=== PATIENT | female | born 2000 | race Caucasian/White ===

== ENCOUNTER → 2024-06-25 10:30 | Outpatient (BNV) | payer OTHER, SELFPAY | PROVIDERS: Visit Provider Psychiatry & Neurology Psychiatry | DX: F42.9 Obsessive-compulsive disorder, unspecified (principal); F43.10 Post-traumatic stress disorder, unspecified | CPT/HCPCS: 90792; 99214 ==

== ENCOUNTER 2024-07-08 08:23 | Outpatient (REF) | payer OTHER, SELFPAY ==
--- OUTSIDE RECORDS SUMMARY | 2024-07-08 08:35 | XMS_ITS | Encounter Summary ---
Author Organization [facility] Address [address] [place] [address] Phone Care Team Providers Care Screw Machine Tool Setter Name Role Phone Judith Weller NP Primary Care Provider [phone] Encounter Details Date Type Department Care Team (Late st Contact Info) Description 01/08/2017 Conversion Encounter [facility] - [address], [address] [place] [address] Judith Weller NP [address] [place] [address] Social History Tobacco Use Types Packs/Day Years Used Date Smoking Tobacco: Never Assessed Comments Unknown Sex and Gender Information Value Date Recorded Sex Assigned at Female 05/13/2024 6:36 AM EST Legal Sex Female 5:10 PM EST Gender Identity Female 02/01/2020 2:02 PM EDT Sexual Orientation Bisexual 11/15/2020 9: 10 AM EDT documented as of this encounter Plan of Treatment Not on file documented as of this encounter Visit Diagnoses Not on filedocumented in this encounter Care Teams Screw Machine Tool Setter Relationship Specialty Start Date End Date Judith Weller NP [address] [place] [address] PCP - General 07/23/16 documented as of this encounter
--- OUTSIDE RECORDS SUMMARY | 2024-07-08 08:35 | XMS_ITS | Clinical Summary ---
Author Organization [facility] Address [address] [place] [address] Phone Care Team Providers Care Director Of Community Life Name Role Phone Judith Weller CAROL Primary Care Provider [phone] Allergies Active Allergy Reactions Criticality Noted Date Comments Latex adhesives allergy Nickel Postive Skin test/Po sitive RAST Medications sertraline 100 MG tablet Take 200 mg by mouth once daily. In the evening 3 9 Active Oral Electrolytes (Liquid I.V.) packIndications:O rthostatic hypotension 2 packs po QD 100 each 1 3 Active QUEtiapine 100 MG tablet Take 25 mg by mouth daily as needed. Active Magnesium 400 MG capsuleIndication s:Episodic tension-type headache, not intractable 1 po QD 90 capsule 1 4 Active PROPRANOLOL HCL PO Take 25 mg by mouth as needed. Active fluticasone 50 MCG/ACT nasal sprayIndications: Other fatigue Administer 1 spray into each nostril daily. 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 Will see in office for follow up to discuss lab eval and possibly starting OCP. Adolescent idiopathic scoliosis of thoracolumbar region 03/26/2016 Overview (02/11/2019): 03/26/2016 22 degrees T6-T12, 25 degrees L1-R3-esywzjqd to [facility]. 05/17-xray at [facility] 27 degree thoracolumbar and 20 degree thoracic. 07/2017-stable scoliosis, wearing natalee brace, Risser 2-3-still growing 01/17-Risser 3-4-curve has progressed 30 degrees/28 degrees-followed at [facility] 07/29/18-Brace D/C'd by [facility] 01/2019-[facility] wants to see annually now Assessment & Plan (02/01/2020 4:43 PM EDT): Stable out of brace, monitored with annual XR from [facility] Bipolar 1 disorder 03/12/2016 Overview (02/25/2017): 03/12/2016 stable on [place], follwed at [facility] Assessment & Plan (02/01/2020 4:44 PM EDT): Followed by psychiatry, medications working well. Nonintractable headache 03/12/2016 Overview (02/25/2017): 03/12/2016 [facility] for 2 years, neg neuro w/u with Dr. Piedad Ca 09/2014. Bifrontal, w/o vomiting, w/o change in vision. FH migraines in mom. Will have diet trial. Increase hydration.03/17-rare now-much improved Assessment & Plan (02/01/2020 4:42 PM EDT): No significant issues, some related to stress but brief and not interfering with daily activities. 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 Will go to [employer] next year.01/23/[address] Assessment & Plan (02/01/2020 4:44 PM EDT): 504 plan at school, struggling with remote learning but more due to issues with procrastination. Resolved Problems Problem Noted Date Diagnosed Date Resolved Date Need for case management follow-up 02/01/2020 10/06/2022 Overview (02/01/2020): Ht, wt, hearing, vision, BP, lipids/labs for menstrual issues, MCV, Hep A, flu, CT Bilateral hip pain 12/04/2019 Assessment & Plan (12/06/2019 5:56 PM EDT): Very reassuring exam. I suspect this is muscular will refer to PT and do screening labs for lyme. I would consider xrays but not indicated yet especially since it is bilateral. Assessment & Plan (12/04/2019 3:27 PM EDT): Acute onset 4 days ago with sharp pain on R when walking. Now bilateral and more of an ache. No other joints involved, no fever or other systemic symptoms. Has a history of scoliosis, but no ongoing back pain. Will try supportive care and encouraged follow up for labs/further evaluation if not improving in a week or sooner if worsening. Concussion without loss of consciousness 06/12/2019 10/05/2019 Assessment & Plan (06/12/2019 10:47 AM EST): Concussion protocol. Recheck 4-5 d Injury of toe on left foot 11/27/2017 1 06/19/2017 Overview (11/27/2017): L 4th and 5th toes. Fx possible but not likely. Rest, ice, elevation, recheck 24 hrs prn for possible boot. Gastroesophageal reflux dise ase without esophagitis 03/25/2017 02/01/2020 Overview (03/25/2017): Possible explanation for symptoms although symptoms very vague. Suggest symptom diary to become more accurate Vegetarian 03/12/2016 09/24/2018 Immunizations Immunization Administration Dates Next Due DTaP 12/23/2006, 4,04/27/2003,02/28,2002 HPV Vaccine 9 Valent 08/23/2017,03/12/2016 Hep A, ped/adol 11/15/2020 Hep B, ped/adol 04/04/2014,01/19/2014,05/02/2009 Hib (PRP-T) 05/08/2004, 3,02/28/2003,12/28 IPV 12/23/2006, 4,06/08/2003,01/20 Influenza 02/15/2009 Influenza, injectable, quadr ivalent, preservative free 10/08/2023,07/15/2022,04/06/2019,08/05,08/23/2017,03/12/2016 Influenza, intranasal, quadrivalent 04/04/2014 MMR 01/31/2009 MMRV 12/23/2006 Meningococcal Conj (Menactra) MCV4P 11/15/2020,1 Pneumococcal Conjugate 05/08/2004,06/08/2003, Tdap 01/23/2015 Varicella 01/23/2015 Family History Relation Name Status Comments Cousin 1 Alive Maternal Cousin s: Autism Cousin 2 Alive Paternal Cousin s: Healthy Father Alive Father's Brother Alive Father's Sister Alive Paternal Aun t: Healthy Maternal Grandfather Alive Mat GFa ther: hypertension Maternal Grandmother Mat GMo ther: Breast cancer at the age 50 Mother Alive Mother: vertigo / migraines Other 1 Breast cancer Other 2 None Other 3 Alive Other 4 Alive Other 5 Alive Other 6 Alive Autism Other 7 Alive Healthy Other 8 Alive Healthy Other 9 Alive Healthy Other 10 Alive Healthy Other 11 Alive High functionin g spectrum Other 12 Alive hypertension Other 13 Alive vertigo/ migrai felisha Other 14 Breast cancer a t the age 50 Paternal Grandfather Alive Pat GFa ther: Healthy Paternal Grandmother Alive Social History Tobacco Use Types Packs/Day Years Used Date Smoking Tobacco: Never Smokeless Tobacco: Never Comments:No vaping Alcohol Use Standard Drinks/Week Comments No 0 (1 standard drink = 0.6 oz pure alcohol) Feels she can call parents if at a green party and uncomfortable. Hunger/Food Answer Date Recorded In the last 12 months, did y ou or your family ever eat less than you felt you should because there wasn't enough money for food? No 10/08/2023 Stable Housing Answer Date Recorded Are you worried that in the next 2 months you may not have stable housing? No 10/08/2023 Transportation Concerns Answer Date Rec orded In the last 12 months, have you or your family ever had to go without healthcare because you didn't have a way to get there? No 10/08/2023 Hazards in Home Answer Date Recorded Think about the place you li ve. Do you have problems with any of the following? Pests (mice or roaches), mold, no/not working smoke detectors, water leaks, no window guards. No 2023 Financing Utilities Answer Date Recorde d In the last 12 months, has t he electric, gas, oil, or water company threatened to shut off your services in your home? No 10/08/2023 Safety at Home Answer Date Recorded Are you or your family worried about feeling saf e in your home? No 10/08/2023 Outside Support Answer Date Recorded Do you feel that you need mo re support from other people or programs to help you care for yourself or your family? No 10/08/2023 Understanding Health Concerns Answer Da te Recorded Do you need help understandi ng your or your child's healthcare needs (diagnosis, medications, plan, etc.)? No 10/08/2023 Financing Health Concerns Answer Date R ecorded In the last 12 months, was t here a time when your child needed to see a doctor or get medications or supplies but could not because of cost? No 10/08/2023 Missing School or Work Answer Date Hardeep rded Did you or your child miss s chool or work because of a health problem that could have been avoided? No 10/08/2023 Child Education Answer Date Recorded Do you have concerns about y our/your child's learning or behavior in school, preschool, or daycare? No 10/08/2023 Comments No Sex and Gender Information Value Date Recorded Sex Assigned at Female 05/13/2024 6:36 AM EST Legal Sex Female 5:10 PM EST Gender Identity Female 02/01/2020 2:02 PM EDT Sexual Orientation Bisexual 11/15/2020 9: 10 AM EDT Last Filed Vital Signs Vital Sign Reading Time Taken Comments Blood Pressure 108/72 10/08/2023 2:51 PM EDT Pulse 80 10/08/2023 2:51 PM EDT Temperature 36.3 ??C (97.3 ??F) 08/02/2022 8:19 AM ES T Respiratory Rate 18 08/07/2019 3:20 PM EST Oxygen Saturation 99% 08/02/2022 8:19 AM EST Inhaled Oxygen Concentration - - Weight 71 kg (156 lb 9.6 oz) 10/08/2023 2:51 PM EDT Height 163.8 cm (5' 4.5 ) 10/08/2023 2:51 PM EDT Body Mass Index 26.47 10/08/2023 2:51 PM EDT Plan of Treatment Health Maintenance Due Date Last Done Comments Men B Vaccine (1 of 2 - Standard) 2018 Hepatitis A Vaccines (2 of 2 - 2-dose series) 05/17/2021 11/15/2020 Glucose/HbA1C 10/08/2023 11/27/2015, 02/01, 02/22/2015, Additional history exists LDL-C/Cholesterol 10/08/2023 11/15/2020, , 02/22/2015, Additional history exists Influenza Vaccines (#1) 2024 10/08/19, 07/15/2022, 02/11/2022, Additional history exists Chlamydia and Gonorrhea Screening 06/02/2024 021, 09/24/2018 DTaP,Tdap,and Td Vaccines (7 - Td or Tdap) 01/23/2025 01/23/2015, 12/23/2006, 05/08/2004, Additional history exists HIB Vaccines Completed 05/08/2004, 04/03, 02/28/2003, Additional history exists Pneumococcal Vaccine Completed 05/08/2004, 06/08/2003, 01/20/2003 IPV Vaccines Completed 12/23/2006, 09/30, 06/08/2003, Additional history exists MMR Vaccines Completed 01/31/2009, 12/23/2006 Hepatitis B Vaccines Completed 04/04/2014, 01/19/2014, 05/02/2009 Varicella Vaccines Completed 01/23/2015, 12/23/2006 HPV Vaccines Completed 08/23/2017, 03/12/2016 Meningococcal Vaccine Completed 11/15/2020, 016 COVID-19 Vaccine Completed 02/01/2024, , 09/23/2020 Procedures * Due to [employer] law, this organization might not be sharing sensitive test results. Procedure Name Priority Date/Time Associated Diagnosis Comments CHLAMYDIA AND GONORRHEA, AMPLIFIED Routine 11/15/2020 9:45 AM EDT Well adult exam LIPID PANEL Routine 11/15/2020 9:33 AM EDT Lipid screening COMPREHENSIVE METABOLIC PANEL Routine 11/27/2015 12:00 AM EDT from Last 3 Months or Most Recently Relevant to Health Maintenance Results * Due to [employer] law, this organization might not be sharing sensitive test results. * Chlamydia and Gonorrhoea, Amplified (11/15/2020 9:45 AM EDT) Chlamydia trachomatis RNA, TMA Not Detected Not Detected 11/16/2020 10:14 AM EDT [facility] Neisseria gonorrhoeae, IGNACIA Not Detected Not Detected 11/16/2020 10:14 AM EDT [facility] Specimen Type urine 11/16/2020 10:14 AM EDT [facility] Urine 11/15/2020 9:45 AM EDT 11/15/2020 3:05 PM EDT us Judith Weller SUBSTANCE ABUSE SPECIALIST LAB MICROBIOLOGY - GENERAL ORD ERABLES Final Result [facility] * (ABNORMAL) Lipid panel (11/15/2020 9:33 AM EDT) HDL 48 mg/dL 11/15/2020 2:48 PM EDT [facility] Comment: ? Interpretation <40 mg/dL: Low HDL cholesterol (major risk factor for CHD) Greater than or equal to 60 mg/dL: High HDL cholesterol ( negative risk factor for CHD) HDL - cholesterol is affected by a number of factors, e.g. smoking, excerise, hormones, sex and age. Cholesterol 213 0 - 240 mg/dL 11/15/2020 2:48 PM EDT [facility] Comment: Pediatric Reference Ranges for 2 to 18 years ? Acceptable: ??Less than 170 mg/dL Borderline: 170 - 199 mg/dL High: ??Greater than or equal to 200 mg/dL Triglycerides 249(H) 30 - 160 mg/dL 11/15/2020 2:48 PM EDT [facility] LDL 115 50 - 129 mg/dL 11/15/2020 2:48 PM EDT [facility] Comment: LDL levels in terms of risk for coronary heart disease: <100 mg/dL: Optimal 100-129 mg/dL: Near or above optimal 130-159 mg/dL: Borderline high 160-189 mg/dL: High >190 mg/dL: Very High Cardiac Risk 4.4 3.3 - 4.4 11/15/2020 2:48 PM EDT [facility] Blood 11/15/2020 9:33 AM EDT 11/15/2020 9:39 AM EDT Narrative [facility] - 11/15/2020 2:48 PM EDT HAS THE PATIENT BEEN FASTING FOR 8 HOURS OR MORE? >NO Melissa Malcolm MD LAB BLOOD ORDERABLES Final R esult [facility] * Comprehensive Metabolic Panel (11/27/2015 12:00 AM EDT) [facility] >60 CONVERTED LAB[facility] Comment: Jono Nash 11/27/2015 12:56:04 PM > Normal Reason: Received -[facility] Lab Order Fretted String Instrument Repairer A/G RATIO 1.6 1.0 - 4.8 CONVERTED LABS Comment: Jono Nash 11/27/2015 12:56:04 PM > Normal Reason: Received [facility] Lab Order Fretted String Instrument Repairer GLUCOSE, SERUM 90 CONVERTED LABS Comment: Joon Nash 11/27/2015 12:56:04 PM > Normal Reason: Received -[facility] Lab Order Fretted String Instrument Repairer CALCIUM 10.1 8.4 - 10.3 CONVERTED LABS Comment: Jono Nash 11/27/2015 12:56:04 PM > Normal Reason: Received -[facility] Lab Order Fretted String Instrument Repairer ALKALINE PHOSPHATASE, SERUM 177 CONVERTED LABS Comment: Jono Nash 11/27/2015 12:56:04 PM > Normal Reason: Received -[facility] Lab Order Fretted String Instrument Repairer CHLORIDE, SERUM 106 CONVERTED LABS Comment: Jono Nash 11/27/2015 12:56:04 PM > Normal Reason: Received -[facility] Lab Order Fretted String Instrument Repairer SODIUM, SERUM 142 CONVERTED LABS Comment: Jono Nash 11/27/2015 12:56:04 PM > Normal Reason: Received -[facility] Lab Order Fretted String Instrument Repairer BUN, SERUM 11 CONVERTED LABS Comment: Jono Nash 11/27/2015 12:56:04 PM > Normal Reason: Received -[facility] Lab Order Fretted String Instrument Repairer PROTEIN, TOTAL, SERUM 6.7 CONVERTED LABS Comment: Jono Nash 11/27/2015 12:56:04 PM > Normal Reason: Received -[facility] Lab Order Fretted String Instrument Repairer CREATININE, SERUM <0.5 CONVERTED LABS Comment: Jono Nash 11/27/2015 12:56:04 PM > Normal Reason: Received -[facility] Lab Order Fretted String Instrument Repairer AST, (SGOT) 16 CONVERTED LABS Comment: Jono Nash 11/27/2015 12:56:04 PM > Normal Reason: Received -[facility] Lab Order Fretted String Instrument Repairer BILIRUBIN, TOTAL 0.4 CONVERTED LABS Comment: Jono Nash 11/27/2015 12:56:04 PM > Normal Reason: Received -[facility] Lab Order Fretted String Instrument Repairer CARBON DIOXIDE, TOTAL 24 CONVERTED LABS Comment: Jono Nash 11/27/2015 12:56:04 PM > Normal Reason: Received -[facility] Lab Order Fretted String Instrument Repairer POTASSIUM, SERUM 4.6 CONVERTED LABS Comment: Jono Nash 11/27/2015 12:56:04 PM > Normal Reason: Received -[facility] Lab Order Fretted String Instrument Repairer GLOBULIN, TOTAL 2.6 CONVERTED LABS Comment: Jono Nash 11/27/2015 12:56:04 PM > Normal Reason: Received -[facility] Lab Order Fretted String Instrument Repairer ALBUMIN, SERUM 4.1 CONVERTED LABS Comment: Jono Nash 11/27/2015 12:56:04 PM > Normal Reason: Received -[facility] Lab Order Fretted String Instrument Repairer ALT, (SGPT) 18 CONVERTED LABS Comment: Jono Nash 11/27/2015 12:56:04 PM > Normal Reason: Received -[facility] Lab Order Fretted String Instrument Repairer 11/27/2015 Narrative [facility] - 11/27/2015 12:00 AM EDT CMP Comp. Metabolic Panel (14) us Jono Nash MD LAB BLOOD ORDERABLES Final Resul t CONVERTED LABS from Last 3 Months or Most Recently Relevant to Health Maintenance Insurance [employer] [facility] [facility] Address: [facility] [id number] [place] [phone] Care Teams Director Of Community Life Relationship Specialty Start Date End Date Judith Weller NP [address] [place] [address] PCP - General 07/23/16
[2024-07-08 09:00] LABS: MANUAL DIFF FLAG NO
[2024-07-08 09:04] LABS: Basophils Percent Auto 0.9 % (0-2); Eosinophils Absolute Auto 0.1 X10*3/uL (0.0-0.4); Eosinophils Percent Auto 1.5 % (0-4); Hematocrit 41.8 % (37.0-47.0); Hemoglobin 13.4 g/dl (12.0-16.0); Imm Gran Abs Auto 0.01 X10*3/uL (0.00-0.03); Imm Gran Pct Auto 0.2 % (0.0-0.4); Lymphocytes Percent Auto 43.1 % (20-40); Mean Corpuscular HGB Conc 32.1 g/dl (31.0-35.0); Mean Corpuscular Hemoglobin 26.6 pg (27.0-33.0); Mean Corpuscular Volume 82.9 fL (80.0-98.0); Mean Platelet Volume 9.4 fL (9.4-12.3); Monocytes Absolute Auto 0.3 X10*3/uL (0.1-1.2); Monocytes Percent Auto 6.1 % (2-11); Neutrophils Absolute Auto 2.2 x10*3/uL (2.0-8.3); Neutrophils Percent Auto 48.2 % (45-73); Platelet Count 266 X10*3/uL (160-400); Red Blood Count 5.04 X10*6/uL (4.20-5.50); Red Cell Distribution Width 13.2 % (11.0-16.0); White Blood Count 4.6 X10*3/uL (4.8-10.8)
[2024-07-08 09:25] LABS: Appearance Urine Cloudy; Color Urine Dark Yellow; Glucose Urine UA Negative (Negative); Leukocyte Esterase Urine Trace (Negative); Nitrite Urine Negative (Negative); PH 5.5 (5.0-9.0); Specific Gravity - Urine >= 1.030 (1.005-1.025); UMIC TRIGGER UA YES; Urine Blood Negative (Negative); Urine Ketones Trace mg/dL (Negative); Urine Protein Trace mg/dL (Neg-Trace)
[2024-07-08 09:28] LABS: UPreg QC Valid YES; Urine Pregnancy NEGATIVE (NEGATIVE)
[2024-07-08 09:35] LABS: Alanine Aminotransferase 23 U/L (0-31); Albumin Level 4.3 g/dL (3.5-5.0); Alkaline Phosphatase 45 U/L (39-117); Anion Gap 13 (12-20); Aspartate Amino Transferase 18 U/L (5-31); Bilirubin Total 0.9 mg/dL (0.0-1.0); Blood Urea Nitrogen 13 mg/dL (9-16); C Reactive Protein < 0.04 mg/dL (< or = 0.50); Calcium 9.8 mg/dL (8.4-10.2); Carbon Dioxide 24 mmol/L (22-29); Chloride 107 mmol/L (96-108); Cholesterol 178 mg/dL (<200); Estimated Glomerular Filt Rate > 60; Glucose Fasting 91 mg/dL (60-99); HDL Cholesterol 44 mg/dL (>40); Iron 217 mcg/dL (30-160); LDL Cholesterol Calculated 103 mg/dL (<100); Magnesium 2.2 mg/dL (1.6-2.6); Percent Iron Saturation 65 % (15-50); Sodium 140 mmol/L (135-145); Total Iron Binding Capacity 335 mcg/dL (228-428); Triglycerides 156 mg/dL (<150); Unsaturated Iron Binding 118 ug/dL
[2024-07-08 09:38] LABS: Bacteria Urine 4+ (None Seen); Hyaline Casts Urine 0-2 /LPF (0-2)
[2024-07-08 09:46] LABS: Erythrocyte Sedimentation Rate 5 MM/HR (0-20)
[2024-07-08 09:46] LABS: Free T4 (Free Thyroxine) 1.08 ng/dL (0.71-1.85); Thyroid Stimulating Hormone 0.58 uIU/mL (0.32-4.0); Vitamin D 25-OH Total 12.7 ng/mL (>30)
[2024-07-08 09:58] LABS: Folate 13.7 ng/mL (> or = 4.0); Vitamin B12 424 pg/mL (200-900)
[2024-07-08 11:22] LABS: Estimated Average Glucose 108 mg/dL; Hemoglobin A1C 124.7697 umol/L; Hemoglobin A1c % 5.4 % (<6.0); Total Hemoglobin (HGBA1C) 3547.0654 umol/L
[2024-07-09 18:13] LABS: Homocysteine 8.1 umol/L (<10.4)
[2024-07-13 15:58] LABS: Methylmalonic Acid 133 nmol/L (55-335)
[2024-07-15 06:28] LABS: Vitamin B1 10 nmol/L (8-30)
== END 2024-07-08 08:24 | disposition home or self-care (01) ==
LOC: HO.LAB 08:23
PROVIDERS: Visit Provider Psychiatry & Neurology Psychiatry
DX: F39 Unspecified mood [affective] disorder (principal)
CPT/HCPCS: 36415; 80053; 80061; 81001; 81025; 82306; 82607; 82746; 83036; 83090; 83540; 83735; 83921; 84425; 84439; 84443; 85025; 85652; 86140

== ENCOUNTER 2024-07-22 10:00 | Outpatient (RCR) | payer OTHER, SELFPAY ==
[2024-06-25 11:13] VITALS: BMI 27.3
[2024-06-25 11:14] VITALS: BP 97/63; PULSE 75; TEMP 37.2
--- NOTE | 2024-06-25 14:43 | PC.ADMIT ---
Patient is a 23 year old single female who was referred to [facility] by her psychiatric prescriber secondary to increased anxiety, depression, and OCD symptoms. Patient is currently unemployed and she feels her mental health is contributing to her inability to work secondary to increased anxiety with panic attacks. Patient feels she is stuck in her life. She is constantly evaluating herself and whether or not she is a good person or if she has done something wrong and obsesses about this. Patient is alert and oriented x4. She is calm and cooperative. She presented with depressed mood and affect. She reports passive SI, denied any plan of intent to kill herself. She was given a copy of her safety plan if needed. She reports struggling with anxiety and depression and was dx with Borderline Personality Disorder at another program she went to and also has a history of attending DBT groups. Patient reports she also experiences panic attacks. Patient reported the following symptoms, SOB, feel like I cant breath, and feels like I'm dying. She reports her last panic attack was this morning. Medications reconciled with patient and patient's pharmacy. She reports taking medications as prescribed. Medication education provided.
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
--- NOTE | 2024-07-01 14:35 | HO.PHP ---
Client's case has been opened and reviewed in team.
--- NOTE | 2024-07-07 10:04 | PC.NURSE ---
Patient has a new PCP Appointment at [facility] on [address]. [facility] [address]. On July at 10:00 am. Bring insurance card and ID. Office # [phone].
--- NOTE | 2024-07-07 19:58 | P.PNPSP_ITS ---
Subjective Subjective Date of Service: 07/06/24 Reason For Visit: OCD,BPD Interim History: In interim, describes acute exacerbation in OCD symptoms w scrupulosity, in context of some interpersonal situations, triggering internal conflicts which she feels are impossible to reckon, but continues to obsessively ruminate over, leading to mounting distress, angst, hyperfixation, and has started back with compulsions to write up lists ad nauseum. I was doing well, I really thought I the meds were working and I was doing better and now I'm stuck again Patient was initially tearful and overwhelmed but with support she was able to more calmly explain that she had been getting out more with friends and meeting new friends. One new friend she found seemed to have values that align with her own, in this case regarding their stance on a current geopolitical conflict. The friend however was not boycotting specific businesses that patient thought she should if she felt strong enough about the cause. The distress comes when she feels conflicted about remaining this person's friend, not so much that she is upset with the friend for this decision, but moreso that she is obsessively worried that she is morally wrong by involving herself in a friendship where there is moral ambiguity, and by proxy she takes on the guilt of that choice by making the choice of being their friend. I don't know what this means, if my friends believe genocide is wrong, but then they don't stand up against it, and yet I want to stay friends, I get stuck in this thinking that I am doing something wrong too because it's like I am condoning evil . On the other hand, she recognizes that 'no one is perfect and that's okay' and 'judging others is also wrong' so she is also conflicted about being unkind to others, particularly friends. She has been again resorting to compulsory list-making weighing out the morally bad vs good things she has done over the course of the day. Much of her present distress stemming from the internal conflict regarding this situation. She struggles to reconcile the ambiguity of life (external, inerpersonal, internal) with the very black and white construct through which she views herself and the world. Difficulty adapting to her environments especially when novel situations (such as meeting a new person or watching a new movie or engaging in an unfamiliar activity) where she feels an immense pressure to estimate and determine whether this (person/activity) is in accordance or aligns sufficiently with her moral standard. Navigating social interactions is particularly challenging especially as other's thoughts/opinions/behaviors are influenced by an ever-changing world. She spoke at length about her efforts to become an excellent reader of social cues by watching her peers in school and trying to imitate them. It was much easier as a kid, life is much less complicated yet she relays that it still took her a while to make friends, as she often misinterpreted social cues, facial expressions, and this got her into trouble throughout elementary. She r ecalls not knowing how to react to other school children, as she got older she felt the desire to interact with peers I was pretty social, like I wanted to be around other kids and have friends, but wasn't sure what to say or do . She says that usually whatever she ended up saying or doing it would end up usually offending the other kids or leave them perplexed or annoyed. I learned to try to mimic other kids, thinking this would help me be accepted but often this just led to them still getting offended . Medication Compliance: Yes Side effects from medications: No Attending Groups: Yes Review of Systems Acute medical concerns: No Review of Systems Review of Systems Yes all other systems are reviewed and are negative Mental Status Exam Mental Status Exam Narrative: Initially tearful and inhibited, distraught but engaged. With support was able to regain composure. Otherwise pleasant. Casually dressed and presented. Good hygiene. Organized and articulate. Mood dysthymic. Affect tearful initially otherwise constricted obsessive thoughts, compulsions. Passive thoughts of . No active SI. No HI. No agitation or psychosis. Insight and judgment good Diagnostics Vital Signs (24Hr): BMI result Body Mass Index 27.3 Assessment & Plan Assessment & Plan (1) Obsessive compulsive disorder (or obsessive compulsive neurosis): Status: Acute Code(s): F42.9 - Obsessive-compulsive disorder, unspecified (2) Complex posttraumatic stress disorder: Status: Acute Code(s): F43.10 - Post-traumatic stress disorder, unspecified (3) Dyslexia: Status: Acute Code(s): R48.0 - Dyslexia and alexia Assessment and Plan: diagnosed in childhood (4) Pervasive developmental disorder: Status: Acute Code(s): F84.9 - Pervasive developmental disorder, unspecified Plan continue guanfacine ER 1 mg qam increase Abilify to 5-7 mg qd in early evening (may increase by 1/2 tablet/1mg q 1-2 days as tolerated - not to exceed 5 mg/d until seen next week by provider) for now continue Risperdal 2 mg qhs (if ABilify proves to be more effective for OCD/mood stability (than risperidone), will plan to start reducing dose of risperidone) continue fluvoxamine ER 150 mg qd (may consider titrating Luvox once Abilify vs Risperdal dosing is sorted) continue benztropine 0.5 mg qhs continue Risperdal 0.25 mg PRN for agitation (not utilizing) continue N-acetylcysteine 600 mg qd as supportive treatment for OCD ? Routine lab work ordered - lips slip given EKG, routine for baseline QTc for medication considerations as indicated UDS as indicated Continue to monitor Patient educated on: diagnosis and medication risk/benefits Informed Consent: understands Reason for contiued partial hosp. stay Substantial Risk for: inability to function, rapid decompensation and med/psych decompensation Certification I certify that partial hospital treatment is medically necessary due to the symptoms and problems resulting from the patient's mental illness and the failure to treat the patient at the partial hospital level of care would likely result in the patient requiring inpatient psychiatric care which could not be prevented at a less intensive level of care. Total time managing care of this patient today __30__ minutes. Discharge Plan Discharge Attending provider: Vidhya Laughlin Additional Instructions: New PCP Appointment at [facility] on [address] [facility] [address]. On July at 10:00 am. Bring insurance card and ID. Office # [phone]. Medications: New guanfacine 1 mg tablet extended release 24 hr 1 mg PO DAILY Qty: 20 0RF risperidone 0.25 mg tablet 0.25 mg PO BID Qty: 20 0RF Rx Instructions: as needed for intrusive thoughts/agitation acetylcysteine [NAC] 600 mg capsule 600 mg PO DAILY Qty: 30 0RF aripiprazole 2 mg tablet 2 mg PO DAILY Qty: 30 0RF aripiprazole 5 mg tablet 5 mg PO BEDTIME Qty: 30 0RF Continued benztropine 0.5 mg tablet 0.5 mg PO BEDTIME Rx Instructions: Last filled 04/2024. 90 day supply. risperidone 2 mg tablet 2 mg PO BEDTIME Rx Instructions: Last filled 06/02/24. #30 fluvoxamine 150 mg capsule,extended release 24hr 150 mg PO DAILY Patient Comments: Last filled 06/02/24. #30 Discontinued propranolol 20 mg tablet 20 mg PO BID PRN (Reason: Anxiety) Patient Comments: Rarely takes. Rx Instructions: Last filled 06/05/23. #180 No Action clonazepam 1 mg tablet 1 mg PO BID PRN (Reason: Anxiety) Patient Comments: Last use 3 weeks ago. Rx Instructions: Last filled 02/20/24 #28 Patient reports takes PRN Stand Alone Forms: Patient Portal Discharge page Print Language: Dominican
--- NOTE | 2024-07-16 23:58 | HO.PHPPROGNO ---
Subjective Subjective Date of Service: 07/16/24 Reason For Visit: OCD,BPD Interim History: Patient seen for follow-up. Am I just in a positive swing, or is this the meds and I'm doing better? Reports feeling less obsessive, more calm, less compulsive. I've been able to come out of the house more see friends . She says it's been easier/less triggering to be with her friends, and have expressed noticing a difference too. Taking guanfacine er 1 mg at noon, I think I feel a little less anxious . Has been at Abilify 7 mg, she feels ABilify has been more effective compared to Risperdal and would like to increase further. Reports Risperdal at 2 mg improved OCD severity from a 10/10 to an 8/10 at best. Since on Abilify it seems severity has diminished more markedly. Mood is improved, more regulated, anxiety improved. Denies any adverse effects from medications. Still struggles with ADHD chronically and is open to trying a stimulant. Had found Adderall helpful as a teen, attention, focus and emotions were better regulated, but had caused issues with excoriation. Sleep, appetite, energy stable. Denies any hopelessness or SI. No issues with anger and is notably less irritable. Denies HI, AVH. Medication Compliance: Yes Side effects from medications: No Review of Systems Acute medical concerns: No Review of Systems Review of Systems Yes all other systems are reviewed and are negative Mental Status Exam Mental Status Exam Narrative: Alert and oriented. Pleasant. Casually dressed and presented. Good hygiene. Organized and articulate. Mood anxious. Affect variable, brighter. Denies any thoughts or SIB or SI. No HI. No agitation or psychosis. Insight and judgment good Diagnostics Vital Signs (24Hr): BMI result Body Mass Index 27.3 Assessment & Plan Assessment & Plan (1) Obsessive compulsive disorder (or obsessive compulsive neurosis): Status: Acute Code(s): F42.9 - Obsessive-compulsive disorder, unspecified (2) Complex posttraumatic stress disorder: Status: Acute Code(s): F43.10 - Post-traumatic stress disorder, unspecified (3) Dyslexia: Status: Acute Code(s): R48.0 - Dyslexia and alexia Assessment and Plan: diagnosed in childhood (4) Pervasive developmental disorder: Status: Acute Code(s): F84.9 - Pervasive developmental disorder, unspecified Plan start Vyvanse 10 mg qam continue guanfacine ER 1 mg qam plan to increase Abilify to 10 mg qd in early evening decrease Risperdal from 2 to 1.75 to 1.5 mg qhs continue fluvoxamine ER 150 mg qd (may consider titrating Luvox once Abilify vs Risperdal dosing is sorted) continue benztropine 0.5 mg qhs continue Risperdal 0.25 mg PRN for agitation (not utilizing) continue N-acetylcysteine 600 mg qd as supportive treatment for OCD ? Routine lab work ordered - lips slip given EKG, routine for baseline QTc for medication considerations as indicated UDS as indicated Continue to monitor Patient educated on: diagnosis and medication risk/benefits Informed Consent: understands Reason for contiued partial hosp. stay Substantial Risk for: inability to function, rapid decompensation and med/psych decompensation Certification I certify that partial hospital treatment is medically necessary due to the symptoms and problems resulting from the patient's mental illness and the failure to treat the patient at the partial hospital level of care would likely result in the patient requiring inpatient psychiatric care which could not be prevented at a less intensive level of care. Total time managing care of this patient today __30__ minutes. Discharge Plan Discharge Attending provider: Vidhya Laughlin Additional Instructions: New PCP Appointment with Dr. Radha Calloway at [address]. [facility] [address]. On July at 10:00 am. Bring insurance card and ID. Office # [phone]. Medications: New risperidone 0.25 mg tablet 0.25 mg PO BID Qty: 20 0RF Rx Instructions: as needed for intrusive thoughts/agitation acetylcysteine [NAC] 600 mg capsule 600 mg PO DAILY Qty: 30 0RF aripiprazole 2 mg tablet 2 mg PO DAILY Qty: 30 0RF aripiprazole 5 mg tablet 5 mg PO BEDTIME Qty: 30 0RF lisdexamfetamine 10 mg capsule 10 mg PO QAM Qty: 30 0RF Rx Instructions: Partial Fill upon patient request. risperidone 1 mg tablet 1 mg PO BEDTIME Qty: 30 0RF aripiprazole 10 mg tablet 10 mg PO BEDTIME Qty: 30 0RF Continued benztropine 0.5 mg tablet 0.5 mg PO BEDTIME Rx Instructions: Last filled 04/2024. 90 day supply. risperidone 2 mg tablet 2 mg PO BEDTIME Rx Instructions: Last filled 06/02/24. #30 guanfacine 1 mg tablet extended release 24 hr 1 mg PO DAILY Qty: 30 0RF fluvoxamine 150 mg capsule,extended release 24hr 150 mg PO DAILY Qty: 30 0RF Discontinued propranolol 20 mg tablet 20 mg PO BID PRN (Reason: Anxiety) Patient Comments: Rarely takes. Rx Instructions: Last filled 06/05/23. #180 No Action clonazepam 1 mg tablet 1 mg PO BID PRN (Reason: Anxiety) Patient Comments: Last use 3 weeks ago. Rx Instructions: Last filled 02/20/24 #28 Patient reports takes PRN Stand Alone Forms: Patient Portal Discharge page Print Language: Wolof
--- NOTE | 2024-07-21 11:18 | HO.PHP ---
Aylin left group 2 early, stated she was feeling tired, overwhelmed and anxious. Stated she wanted to go home and rest. Pt did not identify any specific trigger, feels she may be having an off day , feels she will feel better if she can go home and rest. Aylni stated she felt safe, expressed good self-awareness, calm, tired affect. Pt appreciative for staff support, reports she will be in tomorrow. Aylin is aware she is scheduled to discharge tomorrow.
--- NOTE | 2024-07-22 23:00 | HO.PHPPROGNO ---
Subjective Subjective Date of Service: 07/22/24 Reason For Visit: OCD,BPD Interim History: dc Diagnostics Vital Signs (24Hr): BMI result Body Mass Index 27.3 Assessment & Plan Certification I certify that partial hospital treatment is medically necessary due to the symptoms and problems resulting from the patient's mental illness and the failure to treat the patient at the partial hospital level of care would likely result in the patient requiring inpatient psychiatric care which could not be prevented at a less intensive level of care. Total time managing care of this patient today ____ minutes. Discharge Plan Discharge Attending provider: Vidhya Laughlin Additional Instructions: New PCP Appointment with Dr. Radha Calloway at [address]. [facility] [address]. On July at 10:00 am. Bring insurance card and ID. Office # [phone]. Medications: New acetylcysteine [NAC] 600 mg capsule 600 mg PO DAILY Qty: 30 0RF aripiprazole 10 mg tablet 10 mg PO BEDTIME Qty: 30 0RF methylphenidate HCl 5 mg tablet 5 mg PO DAILY Qty: 14 0RF Rx Instructions: Partial Fill upon patient request. methylphenidate HCl 18 mg tablet extended release 24hr 18 mg PO QAM Qty: 14 0RF Rx Instructions: Partial Fill upon patient request. risperidone 0.5 mg tablet 0.5 mg PO BEDTIME Qty: 30 0RF Rx Instructions: take one 1 mg tablet + one 0.5 mg tablet = 1.5 mg daily at bedtime ergocalciferol (vitamin D2) [Vitamin D2] 1,250 mcg (50,000 unit) capsule 1,250 mcg PO QWEEK Qty: 14 0RF Continued benztropine 0.5 mg tablet 0.5 mg PO BEDTIME Rx Instructions: Last filled 04/2024. 90 day supply. clonazepam 1 mg tablet 1 mg PO BID PRN (Reason: Anxiety) Patient Comments: Last use 3 weeks ago. Rx Instructions: Last filled 02/20/24 #28 Patient reports takes PRN guanfacine 1 mg tablet extended release 24 hr 1 mg PO DAILY Qty: 30 0RF fluvoxamine 150 mg capsule,extended release 24hr 150 mg PO DAILY Qty: 30 0RF risperidone 1 mg tablet 1 mg PO BEDTIME Qty: 30 0RF Rx Instructions: take one 1 mg tablet + one 0.5 mg tablet = 1.5 mg daily at bedtime Changed risperidone 0.25 mg tablet See Rx Instructions .ROUTE .COMPLEX Qty: 30 0RF Rx Instructions: take one tablet po daily in AM; take one tablet po daily as needed for intrusive thoughts/agitation Discontinued risperidone 2 mg tablet 2 mg PO BEDTIME Rx Instructions: Last filled 06/02/24. #30 propranolol 20 mg tablet 20 mg PO BID PRN (Reason: Anxiety) Patient Comments: Rarely takes. Rx Instructions: Last filled 06/05/23. #180 Stand Alone Forms: Patient Portal Discharge page Patient Education: ADHD in Adults (ED), ADHD in Adults (DC), Obsessive Compulsive Disorder (DC), Autism Spectrum Disorder (DC), Autism Spectrum Disorder (GEN) Print Language: Sami
== END 2024-07-22 23:59 | disposition home or self-care (01) ==
LOC: HO.PHPA 10:00
PROVIDERS: Visit Provider Psychiatry & Neurology Psychiatry
DX: F42.9 Obsessive-compulsive disorder, unspecified (principal); F43.10 Post-traumatic stress disorder, unspecified; F84.9 Pervasive developmental disorder, unspecified; R48.0 Dyslexia and alexia; Z79.899 Other long term (current) drug therapy
CPT/HCPCS: 90791; 90853

== ENCOUNTER 2024-07-22 13:50 | Outpatient (REF) | payer OTHER, SELFPAY ==
--- OUTSIDE RECORDS SUMMARY | 2024-07-22 14:55 | XMS_ITS | Encounter Summary ---
Author Organization [facility] Address [address] [place] [address] Phone Care Team Providers Care Privacy Director Name Role Phone Judith Weller NP Primary Care Provider [phone] Encounter Details Date Type Department Care Team (Late st Contact Info) Description 01/08/2017 Conversion Encounter [facility] - [address], [address] [place] [address] Judith Weller NP [address] [place] [address] Social History Tobacco Use Types Packs/Day Years [...] on filedocumented in this encounter Care Teams Privacy Director Relationship Specialty Start Date End Date Judith Weller NP [address] [place] [address] PCP - General 07/23/16 documented as of this encounter
--- OUTSIDE RECORDS SUMMARY | 2024-07-22 14:55 | XMS_ITS | Clinical Summary ---
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 Will see in office for follow up to discuss lab eval and possibly starting OCP. Adolescent idiopathic scoliosis of thoracolumbar region 03/26/2016 Overview (02/11/2019): 03/26/2016 22 degrees T6-T12, 25 degrees P4-F0-[id number] to [facility]. 05/17-xray at [facility] 27 degree thoracolumbar and 20 degree thoracic. 07/2017-stable scoliosis, wearing natalee brace, Risser 2-3-still growing 01/17-Risser 3-4-curve has progressed 30 degrees/28 degrees-followed at [facility] 07/29/18-Brace D/C'd by [facility] 01/2019-[facility] wants to see annually now Assessment & Plan (02/01/2020 4:43 PM EDT): Stable out of brace, monitored with annual XR from [facility] Bipolar 1 disorder 03/12/2016 Overview (02/25/2017): 03/12/2016 stable on [place], follwed at [facility] Assessment & Plan (02/01/2020 4:44 PM EDT): [...] activities. Dyslexia 03/11/2016 Overview (02/25/2017): 03/11/2016 Seeing [employer]. Will go to [employer] next year.01/23/[address] Assessment & [...] she can call parents if at a libertarian and uncomfortable. Hunger/Food Answer Date Recorded In [...] 02/01/2024, , 09/23/2020 Procedures * Due to [place] law, this organization might not be sharing sensitive test results. Procedure Name Priority Date/Time Associated Diagnosis Comments CHLAMYDIA AND GONORRHEA, AMPLIFIED Routine 11/15/2020 9:45 AM EDT Well adult exam LIPID PANEL Routine 11/15/2020 9:33 AM EDT Lipid screening COMPREHENSIVE METABOLIC PANEL Routine 11/27/2015 12:00 AM EDT from Last 3 Months or Most Recently Relevant to Health Maintenance Results * Due to [place] law, this organization might not be sharing sensitive test results. * Chlamydia and Gonorrhoea, Amplified (11/15/2020 9:45 AM EDT) Chlamydia trachomatis RNA, TMA Not Detected Not Detected 11/16/2020 10:14 AM EDT [facility] Neisseria gonorrhoeae, IGNACIA Not Detected Not Detected 11/16/2020 10:14 AM EDT [facility] Specimen Type urine 11/16/2020 10:14 AM EDT [facility] Urine 11/15/2020 9:45 AM EDT 11/15/2020 3:05 PM EDT us Judith Weller WINDOWS SECURITY ANALYST LAB MICROBIOLOGY - GENERAL ORD ERABLES Final Result [facility] * (ABNORMAL) Lipid panel (11/15/2020 9:33 AM EDT) HDL 48 mg/dL 11/15/2020 2:48 PM EDT [facility] Comment: ? Interpretation <40 mg/dL: Low HDL cholesterol (major risk factor for CHD) Greater than or equal to 60 mg/dL: High HDL cholesterol ( negative risk factor for CHD) HDL - cholesterol is affected by a number of factors, e.g. smoking, excerise, hormones, sex and age. Cholesterol 213 0 - 240 mg/dL 11/15/2020 2:48 PM EDT [facility] Comment: Pediatric Reference Ranges for 2 to 18 years ? Acceptable: ??Less than 170 mg/dL Borderline: 170 - 199 mg/dL High: ??Greater than or equal to 200 mg/dL Triglycerides 249(H) 30 - 160 mg/dL 11/15/2020 2:48 PM EDT [facility] LDL 115 50 - 129 mg/dL 11/15/2020 2:48 PM EDT [facility] Comment: LDL levels in terms of risk for coronary heart disease: <100 mg/dL: Optimal 100-129 mg/dL: Near or above optimal 130-159 mg/dL: Borderline high 160-189 mg/dL: High >190 mg/dL: Very High Cardiac Risk 4.4 3.3 - 4.4 11/15/2020 2:48 PM EDT [facility] Blood 11/15/2020 9:33 AM EDT 11/15/2020 9:39 AM EDT Narrative [facility] - 11/15/2020 2:48 PM EDT HAS THE PATIENT BEEN FASTING FOR 8 HOURS OR MORE? >NO Melissa Malcolm MD LAB BLOOD ORDERABLES Final R esult [facility] * Comprehensive Metabolic [facility] (11/27/2015 12:00 AM EDT[facility] >60 [facility] Comment: Jono Nash 11/27/2015 12:56:04 PM > Normal Reason: Received -[facility] Lab Order Dry Press Operator Helper A/G RATIO 1.6 1.0 - 4.8 CONVERTED LABS Comment: Jono Nash 11/27/2015 12:56:04 PM > Normal Reason: Received [facility] Lab Order Dry Press Operator Helper GLUCOSE, SERUM 90 CONVERTED LABS Comment: Jono Nash 11/27/2015 12:56:04 PM > Normal Reason: Received -[facility] Lab Order Dry Press Operator Helper CALCIUM 10.1 8.4 - 10.3 CONVERTED LABS Comment: Jono Nash 11/27/2015 12:56:04 PM > Normal Reason: Received -[facility] Lab Order Dry Press Operator Helper ALKALINE PHOSPHATASE, SERUM 177 CONVERTED LABS Comment: Jono Nash 11/27/2015 12:56:04 PM > Normal Reason: Received -[facility] Lab Order Dry Press Operator Helper CHLORIDE, SERUM 106 CONVERTED LABS Comment: Jono Nash 11/27/2015 12:56:04 PM > Normal Reason: Received -[facility] Lab Order Dry Press Operator Helper SODIUM, SERUM 142 CONVERTED LABS Comment: Jono Nash 11/27/2015 12:56:04 PM > Normal Reason: Received -[facility] Lab Order Dry Press Operator Helper BUN, SERUM 11 CONVERTED LABS Comment: Jono Nash 11/27/2015 12:56:04 PM > Normal Reason: Received -[facility] Lab Order Dry Press Operator Helper PROTEIN, TOTAL, SERUM 6.7 CONVERTED LABS Comment: Jono Nash 11/27/2015 12:56:04 PM > Normal Reason: Received -[facility] Lab Order Dry Press Operator Helper CREATININE, SERUM <0.5 CONVERTED LABS Comment: Jono Nash 11/27/2015 12:56:04 PM > Normal Reason: Received -[facility] Lab Order Dry Press Operator Helper AST, (SGOT) 16 CONVERTED LABS Comment: Jono Nash 11/27/2015 12:56:04 PM > Normal Reason: Received -[facility] Lab Order Dry Press Operator Helper BILIRUBIN, TOTAL 0.4 CONVERTED LABS Comment: Jono Nash 11/27/2015 12:56:04 PM > Normal Reason: Received -[facility] Lab Order Dry Press Operator Helper CARBON DIOXIDE, TOTAL 24 CONVERTED LABS Comment: Jono Nash 11/27/2015 12:56:04 PM > Normal Reason: Received -[facility] Lab Order Dry Press Operator Helper POTASSIUM, SERUM 4.6 CONVERTED LABS Comment: Jono Nash 11/27/2015 12:56:04 PM > Normal Reason: Received -[facility] Lab Order Dry Press Operator Helper GLOBULIN, TOTAL 2.6 CONVERTED LABS Comment: Jono Nash 11/27/2015 12:56:04 PM > Normal Reason: Received -[facility] Lab Order Dry Press Operator Helper ALBUMIN, SERUM 4.1 CONVERTED LABS Comment: Jono Nash 11/27/2015 12:56:04 PM > Normal Reason: Received -[facility] Lab Order Dry Press Operator Helper ALT, (SGPT) 18 CONVERTED LABS Comment: Jono Nash 11/27/2015 12:56:04 PM > Normal Reason: Received -[facility] Lab Order Dry Press Operator Helper 11/27/2015 Narrative [facility] - 11/27/2015 12:00 AM EDT CMP Comp. Metabolic Panel (14) us Jono Nash MD LAB BLOOD ORDERABLES Final Resul t CONVERTED LABS from Last 3 Months or Most Recently Relevant to Health Maintenance Insurance [employer] Care Teams Form Setter Helper Relationship Specialty Start Date End Date Judith Weller NP [address] [place] [address] PCP - General 07/23/16
[2024-07-22 16:02] LABS: Iron 121 mcg/dL (30-160); Percent Iron Saturation 36 % (15-50); Total Iron Binding Capacity 336 mcg/dL (228-428); Unsaturated Iron Binding 215 ug/dL
[2024-07-22 16:09] LABS: Ferritin 25 ng/mL (10-122)
== END 2024-07-22 13:51 | disposition home or self-care (01) ==
LOC: HO.LAB 13:50
PROVIDERS: Visit Provider Psychiatry & Neurology Psychiatry
DX: E83.118 Other hemochromatosis (principal)
CPT/HCPCS: 36415; 82728; 83540

== ENCOUNTER 2024-08-19 10:25 | Outpatient (REF) | payer OTHER, SELFPAY ==
[2024-08-19 11:37] LABS: MANUAL DIFF FLAG NO
[2024-08-19 11:46] LABS: Basophils Percent Auto 0.6 % (0-2); Eosinophils Absolute Auto 0.1 X10*3/uL (0.0-0.4); Eosinophils Percent Auto 1.5 % (0-4); Hematocrit 43.1 % (37.0-47.0); Hemoglobin 13.6 g/dl (12.0-16.0); Imm Gran Abs Auto 0.01 X10*3/uL (0.00-0.03); Imm Gran Pct Auto 0.2 % (0.0-0.4); Lymphocytes Absolute Auto 2.1 X10*3/uL (1.2-4.9); Lymphocytes Percent Auto 39.2 % (20-40); Mean Corpuscular HGB Conc 31.6 g/dl (31.0-35.0); Mean Corpuscular Hemoglobin 26.9 pg (27.0-33.0); Mean Corpuscular Volume 85.2 fL (80.0-98.0); Mean Platelet Volume 9.8 fL (9.4-12.3); Monocytes Absolute Auto 0.4 X10*3/uL (0.1-1.2); Monocytes Percent Auto 7.1 % (2-11); Neutrophils Absolute Auto 2.8 x10*3/uL (2.0-8.3); Neutrophils Percent Auto 51.4 % (45-73); Platelet Count 300 X10*3/uL (160-400); Red Blood Count 5.06 X10*6/uL (4.20-5.50); Red Cell Distribution Width 13.2 % (11.0-16.0); White Blood Count 5.4 X10*3/uL (4.8-10.8)
[2024-08-19 12:15] LABS: Ferritin 30 ng/mL (10-122); Thyroid Stimulating Hormone 0.81 uIU/mL (0.32-4.0)
== END 2024-08-19 10:26 | disposition home or self-care (01) ==
LOC: HO.10HDL 10:25
PROVIDERS: Visit Provider Internal Medicine
DX: Z00.00 Encounter for general adult medical examination without abnormal findings (principal); F12.988 Cannabis use, unspecified with other cannabis-induced disorder; F32.9 Major depressive disorder, single episode, unspecified; F42.8 Other obsessive-compulsive disorder; Z11.3 Encounter for screening for infections with a predominantly sexual mode of transmission; Z12.4 Encounter for screening for malignant neoplasm of cervix
CPT/HCPCS: 36415; 82728; 84443; 85025